=== PATIENT | female | born 1995 | race Caucasian/White ===

== ENCOUNTER 2016-12-07 13:03 | Day surgery (SDC) | payer OTHER ==
--- NOTE | ~2016-12-07 | EGD ---
EGD REPORT [facility] [address] [address] NAME: PAULA REBOLLEDO : [birth year] STATUS : REG [facility] [place] PAT#: [id number] AGE: 21 ADM/REG DATE : 12/07/16 MR#: [id number] REPORT SERV DATE: 12/07/16 DICTATED BY: AMY TIDWELL DATE: 12/07/16 REPORT STATUS : Draft TRANSCRIBED BY: [facility] DATE: 12/07/16 Endoscopy Center Patient Name: Paula Rebolledo Date of : 1995 Attending MD: JODI TIDWELL MD Procedure Date No Time: 12/07/2016 Procedure: Upper GI endoscopy Indications: Epigastric abdominal pain, Dysphagia, Gastro-esophageal reflux disease Referring MD: Migue Mayberry MD Medicines: See the Anesthesia note for documentation of the administered medications Complications: No immediate complications. Estimated blood loss: Minimal. Procedure: Pre-Anesthesia Assessment: - ASA Grade Assessment: II - A patient with mild systemic disease. - Prior to the procedure, a History and Physical was performed, and patient medications and allergies were reviewed. The patient's tolerance of previous anesthesia was also reviewed. The risks and benefits of the procedure and the sedation options and risks were discussed with the patient. All questions were answered, and informed consent was obtained. Prior Anticoagulants: The patient has taken no previous anticoagulant or antiplatelet agents. After reviewing the risks and benefits, the patient was deemed in satisfactory condition to undergo the procedure. After obtaining informed consent, the endoscope was passed under direct vision. Throughout the procedure, the patient's blood pressure, pulse, and oxygen saturations were monitored continuously. The GIF H190 [id number] was introduced through the mouth, and advanced to the second part of duodenum. The upper GI endoscopy was accomplished without difficulty. The patient tolerated the procedure well. Findings: The examined duodenum was normal. Biopsies were taken with a cold forceps for histology. The entire examined stomach was normal. Biopsies were taken with a cold forceps for histology. The cardia and gastric fundus were normal on retroflexion. The examined esophagus was normal. A guidewire was placed and the scope was withdrawn. Dilation was performed with a Savary dilator with no EGD REPORT [address] [address] NAME: PAULA REBOLLEDO : [birth year] STATUS : REG [facility]#: [id number] AGE: 21 ADM/REG DATE : 12/07/16 MR#: [id number] REPORT SERV DATE: 12/07/16 DICTATED BY: AMY TIDWELL DATE: 12/07/16 REPORT STATUS : Draft TRANSCRIBED BY: [employer] DATE: 12/07/16 resistance at 51 Fr. Estimated blood loss: none. Impression: - Normal examined duodenum. Biopsied. - Normal stomach. Biopsied. - Normal esophagus. Dilated. Recommendation: - Patient has a contact number available for emergencies. The signs and symptoms of potential delayed complications were discussed with the patient. Return to normal activities tomorrow. Written discharge instructions were provided to the patient. - Regular diet. - Discharge patient to home. - Continue present medications. - Await pathology results. Procedure Code(s): --- Professional --- 87147, Esophagogastroduodenoscopy, flexible, transoral; with insertion of guide wire followed by passage of dilator(s) through esophagus over guide wire 19731, Esophagogastroduodenoscopy, flexible, transoral; with biopsy, single or multiple Diagnosis Code(s): --- Professional --- R10.13, Epigastric pain R13.10, Dysphagia, unspecified K21.9, Gastro-esophageal reflux disease without esophagitis CPT copyright 2013 [employer]. All rights reserved. The codes documented in this report are preliminary and upon brickmason helper review may be revised to meet current compliance requirements. JODI TIDWELL MD 12/07/2016 3:12 PM This report has been signed electronically. Number of Addenda: 0 Note Initiated On: 12/07/2016 2:58 PM Scope Withdrawal Time 0 hours 0 minutes 0 seconds [id number] [place] [id number]
--- NOTE | ~2016-12-07 | EGD ---
EGD REPORT [facility] [address] [place] [address] NAME: PAULA REBOLLEDO : [birth year] [place] [facility] [place] [id number] AGE: 21 ADM/REG DATE : 12/07/16 MR#: [id number] REPORT SERV DATE: 12/07/16 DICTATED BY: AMY TIDWELL DATE: 12/07/16 REPORT STATUS : Draft TRANSCRIBED BY: [facility] DATE: 12/07/16 Endoscopy Center Patient Name: Paula Rebolledo Date of : 1995 Attending MD: JODI TIDWELL MD Procedure Date No Time: 12/07/2016 Procedure: Colonoscopy Indications: Abdominal pain in the left lower quadrant, Abdominal pain in the right lower quadrant, Hematochezia Referring MD: Migue Mayberry MD Medicines: See the Anesthesia note for documentation of the administered medications Complications: No immediate complications. Estimated blood loss: None. Procedure: Pre-Anesthesia Assessment: - ASA Grade Assessment: II - A patient with mild systemic disease. - Prior to the procedure, a History and Physical was performed, and patient medications and allergies were reviewed. The patient's tolerance of previous anesthesia was also reviewed. The risks and benefits of the procedure and the sedation options and risks were discussed with the patient. All questions were answered, and informed consent was obtained. Prior Anticoagulants: The patient has taken no previous anticoagulant or antiplatelet agents. After reviewing the risks and benefits, the patient was deemed in satisfactory condition to undergo the procedure. After I obtained informed consent, the scope was passed under direct vision. Throughout the procedure, the patient's blood pressure, pulse, and oxygen saturations were monitored continuously. The PCF [id number] was introduced through the anus and advanced to the terminal ileum. The ileocecal valve, appendiceal orifice, terminal ileum and rectum were photographed. The entire colon was examined. The colonoscopy was performed without difficulty. The patient tolerated the procedure well. The quality of the bowel preparation was adequate. Findings: The perianal and digital rectal examinations were normal. The terminal ileum appeared normal. The colon (entire examined portion) appeared normal. Non-bleeding internal hemorrhoids were found during retroflexion and were Grade I (internal hemorrhoids that do not prolapse). EGD REPORT [place] [address] [place]. [address] NAME: PAULA REBOLLEDO : [birth year] STATUS : REG [facility]#: [id number] AGE: 21 ADM/REG DATE : 12/07/16 MR#: [id number] REPORT SERV DATE: 12/07/16 DICTATED BY: AMY TIDWELL DATE: 12/07/16 REPORT STATUS : Draft TRANSCRIBED BY: [facility] DATE: 12/07/16 Impression: - The examined portion of the ileum was normal. - The entire examined colon is normal. - Non-bleeding internal hemorrhoids. Recommendation: - Patient has a contact number available for emergencies. The signs and symptoms of potential delayed complications were discussed with the patient. Return to normal activities tomorrow. Written discharge instructions were provided to the patient. - Regular diet. - Discharge patient to home. - Continue present medications. - Repeat colonoscopy at age 51 for surveillance. Procedure Code(s): --- Professional --- 60824, Colonoscopy, flexible, proximal to splenic flexure; diagnostic, with or without collection of specimen(s) by brushing or washing, with or without colon decompression (separate procedure) Diagnosis Code(s): --- Professional --- K64.0, First degree hemorrhoids R10.32, Left lower quadrant pain R10.31, Right lower quadrant pain K92.1, Melena CPT copyright 2013 [employer]. All rights reserved. The codes documented in this report are preliminary and upon granulator review may be revised to meet current compliance requirements. JODI TIDWELL MD 12/07/2016 3:25 PM This report has been signed electronically. Number of Addenda: 0 Note Initiated On: 12/07/2016 2:55 PM Scope Withdrawal Time 0 hours 6 minutes 29 seconds [id number] [place] [id number]
[~2016-12-07 13:03] MED LIST: X5 PO
== END 2016-12-07 23:59 | disposition home or self-care (01) ==
LOC: DMU 13:03
PROVIDERS: Internal Medicine Gastroenterology
PROC: 0DJD8ZZ Inspection of Lower Intestinal Tract, Via Natural or Artificial Opening Endoscopic (ICD-10-PCS; 2016-12-07)
PROC: 0DB58ZX Excision of Esophagus, Via Natural or Artificial Opening Endoscopic, Diagnostic (ICD-10-PCS; principal; 2016-12-07 14:30)
PROC: 0DB98ZX Excision of Duodenum, Via Natural or Artificial Opening Endoscopic, Diagnostic (ICD-10-PCS; 2016-12-07 14:30)
PROC: 0D757ZZ Dilation of Esophagus, Via Natural or Artificial Opening (ICD-10-PCS; 2016-12-07 14:30)
DX: K21.9 Gastro-esophageal reflux disease without esophagitis (principal); R10.13 Epigastric pain; R13.10 Dysphagia, unspecified; K64.0 First degree hemorrhoids; R10.32 Left lower quadrant pain; R10.31 Right lower quadrant pain; K92.1 Melena; F41.9 Anxiety disorder, unspecified; F32.9 Major depressive disorder, single episode, unspecified; Z88.0 Allergy status to penicillin; Z88.2 Allergy status to sulfonamides; Z88.8 Allergy status to other drugs, medicaments and biological substances; Z79.899 Other long term (current) drug therapy
CPT/HCPCS: 84703; 88305